=== PATIENT | female | born 1995 | race African-American/Black ===

== ENCOUNTER 2024-03-20 04:36 | Emergency (ER) | payer OTHER ==
[~2024-03-20] VITALS: Ht 160 cm; Wt 72.7 kg
[2024-03-20 04:40] VITALS: TEMP 98
[2024-03-20 05:40] VITALS: BP 109/72; PULSE 72; RESP 16; O2SAT 100
[2024-03-20] MEDS: KETOROLAC TROMETHAMINE 30 MG/ML VIAL IM ONE (06:58)
[2024-03-20] MEDS ORDERED: CYCL-448 PO (06:58)
[2024-03-20] MEDS ORDERED: LIDO700A15 TP (07:02)
[2024-03-20] MEDS: LIDOCAINE 5% TRANSDERMAL PATCH TD ONE (07:09)
== END 2024-03-20 07:24 | disposition home or self-care (01) ==
LOC: EMS 04:39
DX: M79.18 Myalgia, other site (principal); Z87.59 Personal history of other complications of pregnancy, childbirth and the puerperium
CPT/HCPCS: 99283; 72040; 96372; J1885